=== PATIENT | male | born 1960 | race Caucasian/White ===

== ENCOUNTER → 2017-12-24 | Outpatient (CLI) | payer OTHER ==
[~2017-12-24] MED LIST: No meds per pt.
== END | disposition home or self-care (01) ==
LOC: STAR 10:27
PROVIDERS: ATTEND Orthopaedic Surgery
DX: Z02.9 Encounter for administrative examinations, unspecified (principal)

== ENCOUNTER → 2017-12-30 | Day surgery (SDC) | payer OTHER ==
[2017-12-24 11:09] VITALS: BP 137/90
[~2017-12-30] VITALS: Ht 185.4 cm; Wt 83.6 kg
[~2017-12-30] MED LIST changes: +ACETAMINOPHEN 500 MG TABLET PO ONE; +ALBUTEROL/IPRATROPIUM 2.5MG/0.5MG, 3 ML NPPB PRN; +BUPIVACAINE/PF-EPI 0.5% 1:200K ONE; +CEFAZOLIN 1,000 MG ONE; +DEXAMETHASONE 4 MG/ML, 1ML ONE; +FENTANYL PF 100 MCG/2ML ONE; +GABAPENTIN 300 MG CAPSULE PO ONE; +HYDROmorphone 1 MG/ML, 1ML IV PRN; +KETOROLAC 30 MG/1 ML IVPush ONE; +KETOROLAC 30 MG/1 ML ONE; +LABETALOL 5MG/ML, 20ML IV PRN; +LACTATED RINGERS 1,000 ML IV SCH; +LIDOCAINE 1%-EPI 1:100K, 30ML ONE; +MEPERIDINE/PF 25MG/0.5ML IVPush PRN; +MEPERIDINE/PF 50 MG/ML ONE; +MIDAZOLAM 1 MG/ML, 2ML IV PRN; +MIDAZOLAM 1 MG/ML, 2ML ONE; +ONDANSETRON 2MG/ML, 2ML IV PRN; +ONDANSETRON ODT 8 MG PO ONE; +OXYcodone 5 MG/5 ML ORAL.SOL UDC ONE; +OXYcodone 5 MG/5 ML ORAL.SOL UDC PO PRN; +PROMETHAZINE 25 MG SUPP PR PRN; +PROPOFOL 10 MG/ML, 20ML ONE; +ROPIvacaine/PF 0.5%, 30 ML ONE; +SCOPOLAMINE PATCH, 1.5MG PATCH.TD72 TD PRN; +hydrALAzine 20 MG/ML, 1ML IV PRN
[2017-12-30] MEDS: FENTANYL PF 100 MCG/2ML IV PRN ×2 (16:35→16:43)
== END | disposition home or self-care (01) ==
LOC: OR 15:28
PROVIDERS: ATTEND Orthopaedic Surgery
DX: S83.242A Other tear of medial meniscus, current injury, left knee, initial encounter (principal); M65.862 Other synovitis and tenosynovitis, left lower leg; M23.92 Unspecified internal derangement of left knee; X58.XXXA Exposure to other specified factors, initial encounter; Y93.89 Activity, other specified; Y92.89 Other specified places as the place of occurrence of the external cause; Y99.8 Other external cause status
CPT/HCPCS: 29881; J0690; J1100; J1885; J2175; J2250; J2704; J2795; J3010; J3490; J7120; Q0162